=== PATIENT | female | born 1980 | race African-American/Black ===

== ENCOUNTER 2019-08-21 11:16 | Emergency (ER) | payer OTHER ==
[~2019-08-21] VITALS: Ht 162.6 cm; Wt 99.8 kg
[~2019-08-21 11:16] MED LIST: CIPRO500 MG PO; LEVSIN/SL0.125 MG SL; TRAMADOL HCL50 MG PO
== END 2019-08-21 13:03 | disposition home or self-care (01) ==
LOC: ER 11:16
DX: L02.01 Cutaneous abscess of face (principal); L72.8 Other follicular cysts of the skin and subcutaneous tissue; B96.89 Other specified bacterial agents as the cause of diseases classified elsewhere

== ENCOUNTER 2021-02-02 17:25 | Inpatient (IN) | payer OTHER ==
[~2021-02-02] VITALS: Ht 162.6 cm; Wt 99.8 kg
== END 2021-02-04 22:31 | disposition home or self-care (01) | DRG 812 ==
LOC: ER 17:25 → MEDJ 23:52 → MEDI 02-03 01:02 → MEDJ 02-03 01:09
PROVIDERS: ADMIT Internal Medicine; ATTEND Internal Medicine
PROC: BU4CZZZ Ultrasonography of Uterus and Ovaries (ICD-10-PCS; 2021-02-02)
PROC: 30233N1 Transfusion of Nonautologous Red Blood Cells into Peripheral Vein, Percutaneous Approach (ICD-10-PCS; principal; 2021-02-03)
DX: D50.0 Iron deficiency anemia secondary to blood loss (chronic) (principal); I10 Essential (primary) hypertension; D25.1 Intramural leiomyoma of uterus; R42 Dizziness and giddiness

== ENCOUNTER 2021-03-23 00:19 | Emergency (ER) | payer OTHER ==
[~2021-03-23] VITALS: Ht 162.6 cm; Wt 105.2 kg
[2021-03-23] MEDS ORDERED: IRON236 MG (00:25)
[2021-03-23] MEDS ORDERED: INTESTINEX680 M1 PO (05:14)
[2021-03-23] MEDS ORDERED: BACTRIM DS TAB1 EACH PO (05:14)
[2021-03-23] MEDS ORDERED: NAPROXEN375 MG PO (05:14)
[2021-03-23] MEDS ORDERED: CEPHALEXIN500 M1 PO (05:14)
== END 2021-03-23 05:31 | disposition home or self-care (01) ==
LOC: ER 00:19
DX: L02.412 Cutaneous abscess of left axilla (principal); L02.01 Cutaneous abscess of face

== ENCOUNTER 2021-03-26 18:09 | Emergency (ER) | payer OTHER ==
[~2021-03-26] VITALS: Ht 162.6 cm; Wt 104.3 kg
[~2021-03-26 18:09] MED LIST changes: +BACTRIM DS TAB1 EACH PO; +CEPHALEXIN500 M1 PO; +INTESTINEX680 M1 PO; +IRON236 MG; +NAPROXEN375 MG PO
[2021-03-26] MEDS ORDERED: CENTANY30 GM NASAL (19:39)
== END 2021-03-26 19:50 | disposition home or self-care (01) ==
LOC: ER 18:09 → EDBD 18:13 → ER 19:50
DX: L02.01 Cutaneous abscess of face (principal)

== ENCOUNTER 2022-08-30 15:52 | Emergency (ER) | payer OTHER ==
[~2022-08-30] VITALS: Ht 165.1 cm; Wt 117.9 kg
[~2022-08-30 15:52] MED LIST changes: +CENTANY30 GM NASAL
[2022-08-30] MEDS ORDERED: ALBUTEROL2.5 MG/3 M IH (19:42)
[2022-08-30] MEDS ORDERED: MEDROLPACK PO (19:42)
[2022-08-30] MEDS ORDERED: DICLOFENAC POTA50 MG PO (19:42)
== END 2022-08-30 19:45 | disposition home or self-care (01) ==
LOC: ER 15:52
DX: R07.89 Other chest pain (principal); J45.909 Unspecified asthma, uncomplicated; Z91.013 Allergy to seafood